=== PATIENT | male | born 1965 | race Caucasian/White ===

== ENCOUNTER 2017-07-21 19:06 | Inpatient (IN) | payer BC, OTHER ==
[~2017-07-21] VITALS: Ht 172.7 cm; Wt 104.0 kg
[2017-07-21] VITALS (11 sets, daily range): BP systolic 137–185; BP diastolic 98–124; PULSE 94–119; RESP 10–24
[~2017-07-21 19:06] MED LIST: HEPARIN 5,000 UNIT/0.5 ML VIAL ONE
[2017-07-21] MEDS ORDERED: HEPARIN 1000 UNITS/ML 10 ML INJ IV STA (19:09)
[2017-07-21] MEDS ORDERED: NITROGLYCERIN 2% 1 GM OINT PKT TD STA (19:09)
[2017-07-21] MEDS ORDERED: ASPIRIN 81 MG TAB ONE (19:09)
[2017-07-21] MEDS ORDERED: SOD CHLORIDE 0.9% 1,000 ML IV STA (19:09)
[2017-07-21 19:18] LABS: BASOPHIL # 0.1 10^3/ul (0.0-0.1); BASOPHILS % 0.5 % (0.0-2.0); EOSINOPHILS % 0.1 % (0.0-7.0); HEMATOCRIT 47.4 % (42.0-52.0); HEMOGLOBIN 16.4 g/dl (14.0-18.0); LYMPHOCYTES # 4.5 10^3/ul (0.8-2.9); LYMPHOCYTES % 26.9 % (15.0-51.0); MEAN CORPUSCULAR HEMOGLOBIN 29.7 pg (29.0-33.0); MEAN CORPUSCULAR HGB CONC 34.6 g/dl (32.0-37.0); MEAN CORPUSCULAR VOLUME 85.9 fl (82.0-101.0); MEAN PLATELET VOLUME 10.1 fl (7.4-10.4); MONOCYTES % 5.8 % (0.0-11.0); NEUTROPHIL # 11.1 10^3/ul (1.6-7.5); NEUTROPHILS % 66.3 % (39.0-77.0); PLATELET COUNT 262 10^3/UL (140-415); RED BLOOD COUNT 5.52 10^6/ul (4.70-6.10); RED CELL DISTRIBUTION WIDTH 12.4 % (11.5-14.5); WHITE BLOOD COUNT 16.7 10^3/ul (4.8-10.8)
[2017-07-21] MEDS ORDERED: ASPIRIN 81 MG TAB PO ONE (19:30)
[2017-07-21 19:31] LABS: INR 0.96; PROTIME 12.8 Sec (12.2-14.2)
[2017-07-21 19:32] LABS: PARTIAL THROMBOPLASTIN TIME 26.2 Sec (25.0-35.0)
[2017-07-21] MEDS ORDERED: VERAPAMIL 5 MG INJ ONE (19:33)
[2017-07-21 19:34] LABS: CALCIUM 9.4 mg/dl (8.4-10.2); CREATININE 1.67 mg/dl (0.61-1.24); POTASSIUM 3.1 mmol/L (3.5-5.1)
--- NOTE | 2017-07-21 19:43 | RADRPT ---
PROCEDURE: XR Chest. CLINICAL INDICATION: Chest Pain. TECHNIQUE: Single frontal view of the chest was obtained COMPARISON: None FINDINGS: The heart and mediastinum are within normal limits. Left basilar subsegmental atelectasis is present. No focal consolidation, pleural effusion, or pneum othorax is seen. The osseous structures are grossly unremarkable. IMPRESSION: 1. Mild left basilar subsegmental atelectasis. No focal consolidations. RPTAT:AAJJ Physician Kia Date Time Electronically viewed and signed by Jessica Everett Physician on 07/21/2017 19:43 QL/
--- NOTE | 2017-07-21 19:46 | CONS ---
Date/Time of Note Date/Time of Note DATE: 07/21/17 TIME: 19:43 Assessment/Plan Assessment/Plan Chief Complaint/Hosp Course Inferoposterior STEMI: to track repair laborer for emergent cath HTN ?CKD vs DANNY: Cr 1.7 -to track repair laborer -further recs to follow Problems: Consultation Date/Type/Reason Admit Date/Time Date of Consultation: Jul 21, 2017 Type of Consultation: Interventional Cardiology Reason for Consultation STEMI Referring Provider: MARISOL SOMMERS MD Hx of Present Illness 52 yo M with a h/o HTN, ?CKD, who presented with 4 days of on and off chest pain which was constant starting 1 hour prior to presentation. No SOB. No prior cardiac history. Still with ongoing chest pain. per HPI Past Medical History HTN Exam/Review of Systems Vital Signs Vitals Vital Signs Date Time Temp Pulse Resp B/P Pulse Ox O2 Delivery O2 Flow Rate FiO2 07/21/17 19:14 Nasal Cannula 2 07/21/17 19:11 99.4 122 22 194/122 95 Exam Constitutional: alert, distress (mild), oriented Psych: nl mood/affect, no complaints Head: atraumatic, normocephalic Eyes: nl conjunctiva ENMT: nl external ears & nose Neck: No jvd Respiratory: clear to auscultation, No crackles/rales Cardiovascular: regular rate and rhythm, No edema, No systolic murmur Gastrointestinal: non-tender, soft Extremities: normal pulses Neurological: nl mental status, nl speech Skin: No rash or lesions Results EKG: inferoposterior STEMI with reciprocal ST depression laterally Result Diagram: 07/21/17190907/21/171909 Results 24 hrs Laboratory Tests Test 07/21/17 19:10 White Blood Count 16.7 H Red Blood Count 5.52 Hemoglobin 16.4 Hematocrit 47.4 Mean Corpuscular Volume 85.9 Mean Corpuscular Hemoglobin 29.7 Mean Corpuscular Hemoglobin Concent 34.6 Red Cell Distribution Width 12.4 Platelet Count 262 Mean Platelet Volume 10.1 Neutrophils % 66.3 Lymphocytes % 26.9 Monocytes % 5.8 Eosinophils % 0.1 Basophils % 0.5 Nucleated Red Blood Cells % 0.0 Neutrophils # 11.1 H Lymphocytes # 4.5 H Monocytes # 1.0 H Eosinophils # 0.0 Basophils # 0.1 Nucleated Red Blood Cells # 0.0 Prothrombin Time 12.8 Prothrombin Time Ratio 1.0 INR International Normalized Ratio 0.96 Activated Partial Thromboplast Time 26.2 Sodium Level 138 Potassium Level 3.1 L Chloride Level 96 L Carbon Dioxide Level 28 Anion Gap 17 H Blood Urea Nitrogen 32 H Creatinine 1.67 H Glucose Level 185 Calcium Level 9.4 Troponin I Pending DION LOMAS Jul 21, 2017 19:46
[2017-07-21 19:48] LABS: TROPONIN-I 0.598 ng/ml (0.00-0.12)
[2017-07-21] MEDS ORDERED: MIDAZOLAM 1 MG/ML 2 ML INJ ONE (19:48)
[2017-07-21] MEDS ORDERED: FENTAnyl 50 MCG/ML VIAL ONE (19:48)
[2017-07-21] MEDS ORDERED: NITROGLYCERIN (IC) 100 MCG/ML INJ ONE (20:08)
[2017-07-21] MEDS ORDERED: BIVALIRUDIN 250MG /NS 50 ML 50 ML IVPB ONE ×2 (20:08→20:37)
[2017-07-21] MEDS ORDERED: TICAGRELOR 90 MG TABLET ONE (20:11)
[2017-07-21] MEDS ORDERED: BISACODYL (EC) 5 MG TAB PO PRN (20:30)
[2017-07-21] MEDS ORDERED: DOCUSATE SODIUM 100 MG CAP PO PRN (20:30)
[2017-07-21] MEDS ORDERED: ACETAMINOPHEN 650MG/20.3ML CUP PO PRN (20:30)
[2017-07-21] MEDS ORDERED: morphine 2 MG INJ IV PRN (20:30)
[2017-07-21] MEDS ORDERED: NITROGLYCERIN (SL) 0.4 MG TAB SL PRN (20:30)
[2017-07-21] MEDS ORDERED: ONDANSETRON 4 MG INJ IV PRN (20:30)
[2017-07-21] MEDS: SOD CHLORIDE 0.9% 1,000 ML IV SCH (20:45)
--- NOTE | 2017-07-21 20:50 | OPR ---
Date/Time of Note Date/Time of Note DATE: 07/21/17 TIME: 20:50 Operative Report Preoperative Diagnosis inferior STEMI Postoperative Diagnosis same s/p PCI of RCA Surgeon see signature line Business Analyst Consultant none Anesthesia Type: moderate sedation Estimated Blood Loss: minimal Transfusion none Specimen none Grafts/Implants none Complications none Procedure Description Procedure Date:07/21/2017 Development Technician/surgeon: Dion Mejia MD. Procedures Performed: 1)Left heart catheterization with selective left and right coronary angiography. 2)Balloon angioplasty and stenting of the mid RCA with a Xience 3.25 x 28 stent. Pre-operative Diagnosis: inferior STEMI Post-operative Diagnosis:inferior STEMI Indications:52 yo M with a h/o HTN, ?CKD, who presented with 4 days of on and off chest pain which was constant starting 1 hour prior to presentation.He was found to have an inferior STEMI Description of Procedure: After informed consent, the patient was brought to the cardiac catheterization lab. The procedure site was prepped and draped in usual manner. The patient was premedicated with versed 1mg and fentanyl 50 mcg. 2 mL lidocaine was injected into the right wrist. Next using the posterior wall technique, the 6/ 5 polish sheath was inserted into the right radial artery. Next using the JL3.5 and JR4, selective angiography of the left and right coronary arteries were obtained. TThe JR accidentally entered the LV and pressures were obtained Left ventricle angiography was not obtained. The decision was made to proceed with PCI of the RCA as this was the likely culprit and the Cx lesion appeared to be CUSTOMER CARE REPRESENTATIVE with well established collaterals from the conus. A JR 4 guide was advanced and engaged into the right coronary artery. After appropriate anticoagulation and antiplatelets were given, the BMW angioplasty wire was advanced past the lesion. Next the 2.0 X 12 balloon was used to dilate the lesion times 2 at a maximum of 12 rylee. Subsequently, the Xience 3.25 x 28 stent was advanced to the lesion and deployed at 14 rylee. Next the stent was post dilated with the 3.5 X 15 noncompliant balloon times 3 at a maximum of 12 rylee. Final angiography revealed JAVAN 3 flow, no edge dissection, and appropriate stent expansion. Next all equipment was removed and hemostasis was achieved by TR band. Findings: Anatomy/Hemodynamics: Left main:normal LAD:prox 30% Diagonal 1: luminal irregularities Diagonal 2: prox 50% Circumflex: mid 100% with collaterals from the conus (from RCA) Obtuse marginal: luminal irregularities RCA: prox 30%, mid 99% ulcerated lesion PDA: luminal irregularities PLV: luminal irregularities LV angiography:not done LV-Ao: no gradient LVEDP: 5 mmHg Contrast used: 90mL Medications used: Versed 1mg Fentanyl 50mcg angiomax verapamil 2.5 NTG 200 ticagrelor 180mg ASA Equipment used: 6 polish JR 4 guide BMW angioplasty wire 2 x 12 balloon Xience 3.25 x 28 drug eluting stent 3.5 x 15 noncompliant balloon Estimated blood loss<10 mL. Specimen: none Grafts/implants: none Complications: none Assessment: Inferior STEMI s/p PCI of mid RCA CAD: PCI as above. Residual CUSTOMER CARE REPRESENTATIVE of Cx/OM which is well collateralized but if symptoms can be attempted HTN ?CKD vs DANNY: monitor renal function post cath Plan: -ASA 81mg lifelong -ticagrelor 90mg BID -continue angiomax 4 more hours -echo -coreg -ACEI/ARB if renal function remains stable - DION MEJIA Jul 21, 2017 20:50
[2017-07-21] MEDS ORDERED: TICAGRELOR 90 MG TABLET PO SCH (21:00)
[2017-07-21] MEDS ORDERED: hydrALAzine 20 MG INJ IV PRN (21:00)
[2017-07-21] MEDS: BIVALIRUDIN 250MG /NS 50 ML 50 ML IVPB SCH ×2 (21:15→23:47)
--- NOTE | 2017-07-21 21:36 | ERD ---
ER Documentation Chief Complaint Chief Complaint cp off and on x3 days. worsened last 40 mins HPI Patient is a 52-year-old male with hypertension who presents with chest pain. The patient is a chest pain for the past 3 days which is coming and going but over the last 40 minutes it was much more pronounced. It is substernal chest pressure and does not radiate. He was given 160 mg of aspirin and 3 nitroglycerin by paramedics. Blood sugar was normal. He has not taken his blood pressure medicines for approximately 1 year. Upon review of old medical records this is the patient's first visit to the ER. ROS All systems reviewed and are negative except as per history of present illness. Allergies Allergies: Coded Allergies: Penicillins (Verified Allergy, 07/21/17) PMhx/Soc Positive for hypertension FmHx Family History: coronary disease Physical Exam Vitals Vital Signs Date Time Temp Pulse Resp B/P Pulse Ox O2 Delivery O2 Flow Rate FiO2 07/21/17 19:14 Nasal Cannula 2 07/21/17 19:11 99.4 122 22 194/122 95 Physical Exam Const: Moderate distress secondary to pain Head: Atraumatic Eyes: Normal Conjunctiva ENT: Normal External Ears, Nose and Mouth. Neck: Full range of motion..~ No meningismus. Resp: Clear to auscultation bilaterally Cardio: Regular rate and rhythm, no murmurs Abd: Soft, non tender, non distended. Normal bowel sounds Skin: Pale skin Back: No midline or flank tenderness Ext: No cyanosis, or edema Neur: Awake and alert Psych: Normal Mood and Affect Result Diagram: 07/21/17190907/21/171909 Results 24 hrs Laboratory Tests Test 07/21/17 19:10 White Blood Count 16.710^3/ul Red Blood Count 5.5210^6/ul Hemoglobin 16.4g/dl Hematocrit 47.4% Mean Corpuscular Volume 85.9fl Mean Corpuscular Hemoglobin 29.7pg Mean Corpuscular Hemoglobin Concent 34.6g/dl Red Cell Distribution Width 12.4% Platelet Count 51378^3/UL Mean Platelet Volume 10.1fl Neutrophils % 66.3% Lymphocytes % 26.9% Monocytes % 5.8% Eosinophils % 0.1% Basophils % 0.5% Nucleated Red Blood Cells % 0.0/100WBC Neutrophils # 11.110^3/ul Lymphocytes # 4.510^3/ul Monocytes # 1.010^3/ul Eosinophils # 0.010^3/ul Basophils # 0.110^3/ul Nucleated Red Blood Cells # 0.010^3/ul Prothrombin Time 12.8Sec Prothrombin Time Ratio 1.0 INR International Normalized Ratio 0.96 Activated Partial Thromboplast Time 26.2Sec Sodium Level 138mmol/L Potassium Level 3.1mmol/L Chloride Level 96mmol/L Carbon Dioxide Level 28mmol/L Anion Gap 17 Blood Urea Nitrogen 32mg/dl Creatinine 1.67mg/dl Glucose Level 185mg/dl Calcium Level 9.4mg/dl Troponin I 0.598ng/ml Current Medications Medications (Trade) Dose Ordered Sig/Clari Route PRN Reason Start Time Stop Time Status Last Admin Dose Admin Sodium Chloride (NS) 1,000 ml @ 1,000 mls/hr Q1H STAT IV 07/21/17 19:09 07/21/17 20:08 DC 07/21/17 19:17 Nitroglycerin (Nitroglycerin 2% Oint) 1 inch ONCE STAT TD 07/21/17 19:09 07/21/17 19:11 DC Heparin Sodium (Porcine) (Heparin (1000 Units/ml)) 5,000 unit ONCE STAT IV 07/21/17 19:09 07/21/17 19:11 DC 07/21/17 19:16 Aspirin (Aspirin) 162 mg ONCE ONCE PO 07/21/17 19:30 07/21/17 19:31 DC 07/21/17 19:17 Ondansetron HCl (Zofran Inj) 4 mg Q6H PRN IV NAUSEA AND/OR VOMITING 07/21/17 20:30 UNV Nitroglycerin (Nitroglycerin (Sl Tab) 0.4 Mg) 1 tab Q5M PRN SL CHEST PAIN 07/21/17 20:30 UNV Acetaminophen (Tylenol Liquid) 650 mg Q6H PRN PO PAIN LEVEL 1-3 OR FEVER 07/21/17 20:30 UNV Morphine Sulfate (morphine) 2 mg Q4H PRN IV PAIN LEVEL 7-10 07/21/17 20:30 UNV Docusate Sodium (Colace) 100 mg Q12H PRN PO CONSTIPATION 07/21/17 20:30 UNV Bisacodyl (Dulcolax) 5 mg DAILY PRN PO CONSTIPATION 07/21/17 20:30 UNV Pantoprazole (Protonix Iv) 40 mg DAILY@06 IV 07/22/17 06:00 UNV Ticagrelor (Brilinta) 90 mg BID PO 07/21/17 21:00 UNV Aspirin (Aspirin) 81 mg DAILY PO 07/22/17 09:00 UNV Carvedilol (Coreg) 6.25 mg BID PO 07/21/17 21:00 UNV Miscellaneous Information HOLD all METFORMIN ... ONCE ONCE XX 07/21/17 21:00 07/21/17 21:01 UNV Sodium Chloride (NS) 1,000 ml @ 75 mls/hr [id number] IV 07/21/17 20:45 07/22/17 01:44 UNV Hydralazine HCl (Apresoline) 10 mg Q6 PRN IV SBP >160 07/21/17 21:00 UNV Procedures/MDM EKG read by me: Rate/Rhythm: Sinus tachycardia Intervals: Normal Impression: Tachycardia with ST elevations in the inferior leads with reciprocal depressions consistent with STEMI Chest x-ray shows no pneumonia or pneumothorax per radiology. Patient is a 52-year-old male who presents with a STEMI. He was given aspirin and nitroglycerin. He was given heparin per Dr. Mejia's request prior to cardiac Furniture Sprayer. The patient was a code STEMI from the field at 190. They did not send EKG but they said they had 2 EKGs that showed STEMI. At 1904 the patient arrived. At [address] Mejia who agreed to go to the cardiac Furniture Spr[facility]. At 1909 an EKG was done. At 1923 the patient was ready to go to the cardiac [facility] but we were still waiting for the cardiac cath team. In 1932 Dr. Mejia was at the bedside. At 1937 the patient was transported to the [facility]. The patient will be admitted to the panel team as the patient has never been here before and the patient is unstable for transfer given the STEMI. The patient will be admitted to the ICU. I doubt pneumonia, pneumothorax, pulmonary embolism, or aortic dissection. Critical Care: Time: 35 minutes excluding all billable procedures. Treatments/Evaluations: Close monitoring and treatment of unstable vital signs, cardiorespiratory, and neurologic status, while maintaining tight balance of fluid, respiratory, and cardiac interventions. Departure Diagnosis: Primary Impression: ST elevation myocardial infarction (STEMI) Involved coronary artery: unspecified coronary artery Qualified Code: I21.3 - ST elevation myocardial infarction (STEMI), unspecified artery Condition: Critical MARISOL SOMMERS MD Jul 21, 2017 21:36
[2017-07-21] MEDS ORDERED: LABETALOL HCL 20MG INJ IV ONE (23:00)
--- NOTE | 2017-07-21 23:37 | HP ---
Date/Time of Note Date/Time of Note DATE: 07/21/17 TIME: 23:36 Assessment/Plan VTE Prophylaxis VTE Prophylaxis Intervention: SCD's Lines/Catheters IV [facility]from [facility] Saline Lock Assessment/Plan Chief Complaint/Hosp Course This is a 52-year-old male being admitted to the ICU floor for: #1 acute STEMI: Inferior STEMI s/p PCI of mid RCA, please see cath report for further details. ASA 81mg lifelong, ticagrelor 90mg BID, continue angiomax for 4 more hours as per cardio echo, coreg, ACEI/ARB if renal function remains stable. Will check a lipid panel, TSH, hemoglobin A1c, patient also likely will need to be started on high-dose statin. #2 CAD: PCI of mid RCA as per #1, please see cath report regarding additional findings as well as areas that are well collateralized but may need to be stented if symptoms occur/recur per cardiology recommendations. Check lipid panel, TSH, hemoglobin A1c, patient also likely will need to be started on high- dose statin. #3 Chronic kidney disease: s/p cardiac cath. Continue to monitor renal function. avoid nephrotoxic agents. Initiate purnima/arb if renal function permits as per cardio. Nephro consult. #4 hypertension: Patient has been noncompliant with his medications for a year. Will continue monitor his blood pressure. Current time is started on Coreg for #1. If his renal function remains normal we likely can initiate an PURNIMA/ arb. We can also consider Norvasc. #5 obesity: We will check hemoglobin A1c, lipid panel, TSH. Dietary recommendations were given to the patient. #6 DVT GI prophylaxis: SCDs, PPI Further treatment strategy will be implemented as per the clinical course Greater than 40 minutes of critical care time was spent on the care and management of this patient Problems: HPI/ROS Admit Date/Time Admit Date/Time Hx of Present Illness cc: chest pain This is a 52-year-old male who presented to the ED today complaining of chest pain. Patient states that the pain started approximately 4 days ago and has been on and off since. The pain is sharp and it was 10 out of 10 and centrally located. He states that today the pain got worse and it radiated down his left arm which prompted him to come to the ED. Patient also reports that he noticed swelling of his bilateral lower feet as well. Denies any diaphoresis or shortness of breath. He reports he has not taken his blood pressure medications in approximately 1 year. Patient was found to have an inferior STEMI on the EKG. Stat code STEMI was called and patient was taken to the [facility] where he received PCI of mid RCA. Patient had the procedure performed successfully and I saw him at the bedside post procedure with the patient was laying there comfortably in no acute distress. Allergies: Penicillin Medications: None ROS Const: Negative for fever, chills, weight gain or weight loss, fatigue, or diaphoresis Eyes : No pain discharge or redness or change in visual acuity ENT: No pain, sore throat, congestion, congestion, dysphagia or discharge Respiratory: As per HPI Cardiovascular: As per HPI GI : no change in appetite, abdominal pain, nausea, vomiting, diarrhea, constipation, or change in the color his stool Genitourinary: No dysuria, hematuria, flank pain , discharge or CVA tenderness Musculoskeletal: No joint pain, back pain, neck pain, restricted range of motion in neck or joints Skin: No rash, bruising or hives Neuro: No headache, dizziness, syncope, seizure, focal weakness Endocrine: No polyuria, polydipsia, temperature intolerance Psych: No hallucination, depression, anxiety or suicidal ideation Psychological: nl mood/affect, no complaints PMH/Family/Social Past Medical History Hypertension Past Surgical History Past Surgical Hx: cholecystectomy Family History Significant Family History: no pertinent family hx Social History Alcohol Use: occasionally Smoking Status: Never smoker Drug Use: none Exam/Review of Systems Vital Signs Vitals Vital Signs Date Time Temp Pulse Resp B/P Pulse Ox O2 Delivery O2 Flow Rate FiO2 07/21/17 23:15 102 14 161/98 97 Room Air 07/21/17 21:50 21 07/21/17 21:15 98.9 07/21/17 19:15 4.0 Exam Exam General: Patient is well-developed well-nourished The patient is alert oriented -3 lying comfortably in bed. HEENT: Atraumatic, normocephalic. The pupils are equal, round and reactive. Extraocular motor are intact Neck: Supple with full range of motion. No rigidity or meningismus Chest: Nontender Lungs: Clear to auscultation bilaterally no crackles rales or wheezing Heart: Normal S1-S2, Regular rhythm and rate. No overt murmur appreciated Abdomen: Soft , nontender, nondistended , bowel sounds are present. No guarding no rebound tenderness , No masses or organomegaly. No costovertebral temporal angle mass Extremities: Normal to inspection, no edema no cyanosis Neurologic: Normal mental status, speech normal, cranial nerves II through XII are intact, motor and sensory are intact, no focal weakness Additional Comments PROCEDURE: XR Chest. CLINICAL INDICATION: Chest Pain. TECHNIQUE: Single frontal view of the chest was obtained COMPARISON: None FINDINGS: The heart and mediastinum are within normal limits. Left basilar subsegmental atelectasis is present. No focal consolidation, pleural effusion, or pneumothorax is seen. The osseous structures are grossly unremarkable. IMPRESSION: 1. Mild left basilar subsegmental atelectasis. No focal consolidations. RPTAT:AAJJ Jessica Everett Physician Date Time Electronically viewed and signed by Jessica Everett Physician on 07/21/2017 19:43 QL/ CC: MARISOL SOMMERS MD 1)Left heart catheterization with selective left and right coronary angiography. 2)Balloon angioplasty and stenting of the mid RCA with a Xience 3.25 x 28 stent. EKG: inferoposterior STEMI with reciprocal ST depression laterally Labs Result Diagram: 07/21/17190907/21/171909 Medications Medications Current Medications Ondansetron HCl (Zofran Inj) 4 mg Q6H PRN IV NAUSEA AND/OR VOMITING; Start at 20:30 Nitroglycerin (Nitroglycerin (Sl Tab) 0.4 Mg) 1 tab Q5M PRN SL CHEST PAIN; Start 07/21/17 at 20:30 Acetaminophen (Tylenol Liquid) 650 mg Q6H PRN PO PAIN LEVEL 1-3 OR FEVER; Start 07/21/17 at 20:30 Morphine Sulfate (morphine) 2 mg Q4H PRN IV PAIN LEVEL 7-10; Start 07/21/17 at 20:30 Docusate Sodium (Colace) 100 mg Q12H PRN PO CONSTIPATION; Start 07/21/17 at 20 :30 Bisacodyl (Dulcolax) 5 mg DAILY PRN PO CONSTIPATION; Start 07/21/17 at 20:30 Pantoprazole (Protonix Iv) 40 mg DAILY@06 IV ; Start 07/22/17 at 06:00 Ticagrelor (Brilinta) 90 mg BID PO ; Start 07/21/17 at 21:00 Aspirin (Aspirin) 81 mg DAILY PO ; Start 07/22/17 at 09:00 Carvedilol 6.25 mg 6.25 mg BID PO Last administered on 07/21/17 22:34; Admin Dose 6.25 MG; Start 07/21/17 at 21:00 Sodium Chloride (NS) 1,000 ml @ 75 mls/hr [id number] IV ; Start 07/21/17 at 20:45 ; Stop 07/22/17 at 01:44 Hydralazine HCl 10 mg 10 mg Q6 PRN IV SBP >160 Last administered on 07/21/17 21:49; Admin Dose 10 MG; Start 07/21/17 at 21:00 Bivalirudin (Angiomax) 50 ml @ 0 mls/hr Q0M IVPB ; Start 07/21/17 at 23:00; Stop 07/22/17 at 01:30 LAUREN KELLY Jul 21, 2017 23:37
[2017-07-22] VITALS (30 sets, daily range): BP systolic 94–159; BP diastolic 63–100; PULSE 45–98; RESP 7–19; Ht 172.7 cm; Wt 104.0 kg
[2017-07-22 01:42] LABS: CK-MB 31.9 ng/ml (0.0-2.4)
[2017-07-22 01:43] LABS: TROPONIN-I 15.8 ng/ml (0.00-0.12)
[2017-07-22] MEDS: SOD CHLORIDE 0.9% 1,000 ML IV SCH (02:50)
[2017-07-22] MEDS ORDERED: PANTOPRAZOLE 40 MG INJ IV SCH (06:00)
[2017-07-22 08:48] LABS: CK-MB 23.7 ng/ml (0.0-2.4)
--- NOTE | 2017-07-22 08:53 | RADRPT ---
PROCEDURE: Renal US. CLINICAL INDICATION: Renal dysfunction. TECHNIQUE: Multiple sonographic images of the kidneys and urinary bladder were obtained. The imag es were reviewed on a PACS workstation. COMPARISON: No prior studies are available for comparison. FINDINGS: The right kidney measures 11.3 x 5.0 x 5.4 cm. The left kidney measures 11.8 x 6.1 x 5.3 cm. There is no solid renal mass. There are benign left renal cysts with the largest measuring 2.0 cm in maximal dimension. There is no hydronephrosis. There is a nonobstructing 0.6 cm calculus inferiorly in the left kidney. There is no other renal ramiro culus. Renal parenchymal thickness is normal bilaterally. Both kidneys are hyperechoic consistent with medical renal disease. The perirenal regions are normal with no fluid collection or mass. The urinary bladder is unremarkable. IMPRESSION: 1. Benign left renal cysts. 2. Nonobstructing 0.6 cm calculus inferiorly in the left kidney. 3. Bilateral hyperechoic kidneys consistent with medical renal disease. 4. Otherwise unremarkable renal ultrasound. RPTAT: QQ .Álvaro Estevez MD, MD Date Time Electronically viewed and signed by .Álvaro Estevez MD, on 07/22/2017 08:52 .R/
[2017-07-22 09:56] LABS: CALCIUM 8.8 mg/dl (8.4-10.2); CREATININE 1.45 mg/dl (0.61-1.24); POTASSIUM 3.1 mmol/L (3.5-5.1)
[2017-07-22] MEDS ORDERED: SOD CHLORIDE 0.9% 1,000 ML IV ONE (10:00)
[2017-07-22] MEDS: ASPIRIN 81 MG TAB PO SCH (10:08)
[2017-07-22] MEDS: ACETYLCYSTEINE 600 MG CAP PO SCH ×2 (10:08→20:51)
--- NOTE | 2017-07-22 10:58 | CONS ---
DATE OF ADMISSION: 07/21/2017 DATE OF CONSULTATION: REASON FOR CONSULTATION: DANNY versus DANNY on CKD. HISTORY OF PRESENT ILLNESS: This is a 52-year-old male who is [employer] by profession, presented to the emergency department after complaining of chest bone pain for 4 days. The patient said that the chest pain started 4 days ago. It has been on and off since. Patient's pain was sharp. Patient said that the pain got worse last night and radiated to the left arm and prompted him to come to the ED. Last night he noted a swelling in the bilateral lower extremities, but that has resolved. Patient denied any shortness of breath, any dizziness prior to this episode. The patient was seen in the ER and was found to have inferior STEMI on EKG, code STEMI was called and patient was taken to the laborer where patient had a left heart catheterization and selective left and right coronary angiography. The patient had balloon angioplasty and stenting of the mid RCA with a stent. On admission, patient had labs that were done and showed a BUN of 32, creatinine 1.67, potassium 3.1, chloride 96, bicarbonate 28, and Renal was consulted for further management. Upon questioning, the patient said that he was diagnosed to have hypertension 3 years ago. He was prescribed a medication which he took it for 1 year and after that he stopped taking the medication. He was checking his blood pressure occasionally at home and his blood pressure would sometimes run systolic of 130 or sometimes would run 160, but he never went to any doctor to take any medication. Patient was never told that he has any kidney disease in the past. The patient also apparently had history of kidney stone on the right side, which happened 2 years ago. He went to an ER where he had right- sided flank pain. They did a CT scan of the abdomen and pelvis where he was found to have a right kidney stone. He was just prescribed some pain medications and he went home and according to the patient, he passed a stone and he never had any problems since then. Currently, patient denies any chest pain and is status post angiogram.Denies any NSAID use PAST MEDICAL HISTORY: 1. Hypertension, which has been uncontrolled for the last 3 years. 2. History of right kidney stone. 3. Obesity. ALLERGIES: PENICILLIN. PAST SURGICAL HISTORY: Hernia repair. SOCIAL HISTORY: Denies any history of smoking. Occasionally drinks alcohol. Denies any drug use. Is an [employer] by profession, works in [employer]. FAMILY HISTORY: No history of kidney disease in the family. REVIEW OF SYSTEMS: The patient denies any headache, any blurry vision had this episode of chest pain. Denied any orthopnea, PND had lower extremity edema which is resolved. Denied any abdominal pain, nausea, vomiting, diarrhea. Denies any hematemesis, any melena, any bright blood per rectum. Denies any urinary urgency, frequency, hematuria. The patient has history of kidney stone 2 years ago. After that did not seek any treatment. PHYSICAL EXAMINATION: VITAL SIGNS: Heart rate 84, blood pressure 121/67, pulse 84, saturating 99%. GENERAL: The patient is awake, alert, oriented, moderate. Does not appear to be in any acute distress. HEENT: Pupils equal, round, reactive to light. NECK: Supple. No JVD. HEART: Regular rate and rhythm. No murmur, rub or gallop. ABDOMEN: Soft, nontender, nondistended, positive bowel sounds. No guarding or rebound tenderness. EXTREMITIES: No clubbing, cyanosis, or edema. NEUROLOGIC: Grossly nonfocal. DIAGNOSTIC DATA: Shows labs on admission on 08/07 at 1900, a potassium of 3.1, BUN of 32, creatinine 1.67, glucose of 185. Troponin was 0.598 and is now 18. White count was 16.7, hemoglobin 15.4, platelet count 262. INR was 0.96. The patient had a chest x-ray that showed mild basilar segmental atelectasis, no focal and no consolidations. Patient had a renal ultrasound that shows right kidney 11.3 x 2.5 x 5.4 cm, left kidney measures 11.8 x 6.1 x 5.3 cm, benign left renal cyst larger is 2.0 cm in dimension, nonobstructive 0.6 cm calculus inferior left kidney. Bilateral hyperechoic kidneys consistent with medical renal disease, otherwise unremarkable renal ultrasound. ASSESSMENT AND PLAN: This is a 52-year-old male presenting with 1. Acute versus acute on chronic kidney disease. Patient does not have any labs in the past, had never been to a doctor. The patient has uncontrolled hypertension for many years, do not know patient's baseline creatinine, assuming possibly patient had chronic kidney disease from underlying uncontrolled hypertension. Plus, on admission, creatinine was 1.67, which could have been worsened likely secondary to cardiorenal( due to DE) Patient had left and right heart catheterization performed on 07/21/2017 and there are no new labs from today. Patient is at high risk for contrast nephropathy given underlying chronic kidney disease and history of hypertension. Plus patient also has history of kidney stone in the past; do not know the baseline creatinine, plus also patient has a renal cyst on the left side. The patient denies any NSAID use and denies any BPH symptoms. 2. Hypokalemia. 3. Coronary artery disease, status post percutaneous coronary intervention of mid right coronary artery. 4. Acute STEMI, status post percutaneous coronary intervention of the mid right coronary artery. 5. Hypertension, which has been uncontrolled. 6. Obesity. 7. Kidney cysts. 8. Renal calculus. PLAN: At this period of time, the patient is admitted to CCU. We will monitor the patient for contrast nephropathy for 24 to 48 hours. Patients who have GFR of less than 45 with or without proteinuria with or without Diabetes have high risk of contrast nephropathy 1. We will give the patient fluids at 1 mg/kg for at least 6-12 hours post- catheterization procedure. 2 We will give the patient Mucomyst 1200 mg p.o. b.i.d. post procedure. 3. Avoid volume depletion and no NSAIDs 4. Avoid all nephrotoxic agents. 5. Would not recommend starting the patient on PURNIMA or ARB at this point due to acute kidney injury on chronic kidney disease. 6 Avoid any hemodynamic changes and any BP Drops 7 We will also check a urinalysis for proteinuria and urine electrolytes. 8 Patient does not have any symptoms from kidney stones that can be worked up as an outpatient. 9 The patient will eventually require a CT scan of the kidney to evaluate for kidney cyst which can also be done as an outpatient. 10 We will follow the patient closely with you. Thank you for the consultation. Please call us with any questions. Dictated By: MARITZA FABIAN/MEGAN Conf#: [id number] DID#: [id number] CC: LAUREN KELLY MD;*EndCC* MTDD
[2017-07-22] MEDS ORDERED: POTASSIUM CHLORIDE (SR) 20 MEQ TAB PO STA (13:03)
--- NOTE | 2017-07-22 13:03 | PN ---
Date/Time of Note Date/Time of Note DATE: 07/22/17 TIME: 12:52 Assessment/Plan VTE Prophylaxis VTE Prophylaxis Intervention: heparin Lines/Catheters IV Catheter Type (from Nrsg): Saline Lock Assessment/Plan Assessment/Plan 1. CAD with Acute STEMI, s/p mid RCA stent 07/21/2017, stable, on aspirin/ brilinta, lipitor, coreg 2. Acute on chronic renal failure, avoid nephrotoxic, follow up with BMP 3. HTN, controlled 4. Obesity 5. Hypokalemia, KCL 6. DVT prophylaxis: heparin Subjective 24 Hr Interval Summary Free Text/Dictation no chest pain, no shortness of breath Exam/Review of Systems Vital Signs Vitals Vital Signs Date Time Temp Pulse Resp B/P Pulse Ox O2 Delivery O2 Flow Rate FiO2 07/22/17 11:00 87 10 120/83 99 Room Air 07/22/17 08:00 98.6 07/21/17 21:50 21 07/21/17 19:15 4.0 Intake and Output 07/21/17 07/21/17 07/22/17 15:00 23:00 07:00 Intake Total 187.5 ml 1070 ml Output Total 700 ml Balance 187.5 ml 370 ml Exam Constitutional: alert, oriented, well developed Psych: nl mood/affect, no complaints Head: atraumatic, normocephalic Eyes: EOMI, PERRL, nl conjunctiva, nl lids ENMT: mucosa pink and moist, nl external ears & nose, nl lips & teeth, nl nasal mucosa & septum Neck: non-tender, supple Respiratory: clear to auscultation, normal air movement, No congested cough, No crackles/rales, No diminished breath sounds, No intercostal retraction, No labored breathing, No other, No respirations, No tactile fremitus, No wheezing Cardiovascular: nl pulses, regular rate and rhythm, No S3, No S4, No bruits, No diastolic murmur, No edema, No gallop, No irregular rhythm, No jugular venous distention (JVD), No murmurs/extra sounds, No other, No rub, No systolic murmur Gastrointestinal: nl liver, spleen, non-tender, soft, No ascites, No bowel sounds, No distended, No firm, No hepatomegaly, No mass , No other, No rebound or guarding, No splenomegaly, No surgical scars, No tender Musculoskeletal: nl extremities to inspection Extremities: normal pulses, No calf tenderness, No clubbing, No cyanosis, No edema, No other, No palpable cord, No pitting pedal edema, No tenderness 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, nl mental status, nl speech, nl strength Skin: nl turgor Lymph: nl lymph nodes Results Result Diagram: 07/21/17 1910 07/22/17 0750 Results 24 hrs Laboratory Tests Test 07/21/17 19:10 07/22/17 00:39 07/22/17 07:50 White Blood Count 16.7 H Red Blood Count 5.52 Hemoglobin 16.4 Hematocrit 47.4 Mean Corpuscular Volume 85.9 Mean Corpuscular Hemoglobin 29.7 Mean Corpuscular Hemoglobin Concent 34.6 Red Cell Distribution Width 12.4 Platelet Count 262 Mean Platelet Volume 10.1 Neutrophils % 66.3 Lymphocytes % 26.9 Monocytes % 5.8 Eosinophils % 0.1 Basophils % 0.5 Nucleated Red Blood Cells % 0.0 Neutrophils # 11.1 H Lymphocytes # 4.5 H Monocytes # 1.0 H Eosinophils # 0.0 Basophils # 0.1 Nucleated Red Blood Cells # 0.0 Prothrombin Time 12.8 Prothrombin Time Ratio 1.0 INR International Normalized Ratio 0.96 Activated Partial Thromboplast Time 26.2 Sodium Level 138 140 Potassium Level 3.1 L 3.1 L Chloride Level 96 L 104 Carbon Dioxide Level 28 26 Anion Gap 17 H 13 Blood Urea Nitrogen 32 H 34 H Creatinine 1.67 H 1.45 H Glucose Level 185 170 Calcium Level 9.4 8.8 Troponin I 0.598 *H 15.800 *H 18.000 *H Creatine Kinase 462 H 404 H Creatine Kinase Index 6.9 5.9 Creatinine Kinase MB (Mass) 31.90 H 23.70 H Medications Medications Current Medications Pantoprazole (Protonix Iv) 40 mg DAILY@06 IV Last administered on 07/22/17 06 :00; Admin Dose 40 MG; Start 07/22/17 at 06:00 Aspirin (Aspirin) 81 mg DAILY PO Last administered on 07/22/17 10:08; Admin Dose 81 MG; Start 07/22/17 at 09:00 Acetylcysteine 1200 mg 1,200 mg BID PO Last administered on 11/14/17at 10:08; Admin Dose 1,200 MG; Start 07/22/17 at 10:00; Stop 07/23/17 at 21:01 Sodium Chloride (NS) 1,000 ml @ 75 mls/hr [id number] ONCE IV Last administered on 07/22/17t 10:09; Admin Dose 75 MLS/HR; Start 07/22/17 at 10:00; Stop 07/22 at 23:19 HARITHA MCKENNA MD Jul 22, 2017 13:02
[2017-07-22 13:24] LABS: CHOL/HDL RATIO 6.5 RATIO
--- NOTE | 2017-07-22 14:31 | RADRPT ---
Echocardiogram Report Patient Name: CHAD ELY Gender: Male Date: 1965 Study Date: 22-Jul-2017 Environmental Designer: Norm Seaman RDCS Location: 120 Ref. Physician: LAUREN KELLY Quality: Good Procedures: Transthoracic echocardiogram with complete 2D, M-Mode, and doppler examination. Indications: STEMI. 2D/M Mode Doppler Measurement Value Normal Ranges Measurement Value Normal Ranges LVIDd 2D 4.1 3.5 - 5.6 cm AV Peak [place] 1.4 m/sec LVIDs 2D 2.2 2.1 - 4.1 cm AV Peak PG 7.8 mmHg LVPWd 2D 1.4 0.6 - 1.1 cm AI Peak PG 98.8 mmHg IVSd 2D 1.4 0.6 - 1.1 cm AI Peak [place] 5.0 m/sec AoR Diam 2D 3.3 2.0 - 3.7 cm AI PHT 353.6 msec EDV 2D 74.2 cm3 LVOT Peak [place] 1.4 m/sec ESV 2D 11.0 cm3 LVOT Peak PG 8.2 mmHg LA Dimen 2D 3.5 2.3 - 4.0 cm MV E Peak [place] 0.7 m/sec MV A Peak [place] 1.2 m/sec MV E/A 0.6 MV Decel Time 104 msec MV Decel [place] 7 MV E/A 0.6 Findings Left Ventricle: Normal left ventricular systolic function. Normal left ventricular cavity size. Mild concentric left ventricular hypertrophy. Ejection fraction is visually estimated at 65 %. Tissue Doppler/Mitral Doppler indices are consistent with impaired relaxation (Stage I diastolic dysfunction). Hypokinesis of the inferior wall. Right Ventricle: Normal right ventricular size. Normal right ventricular systolic function. Left Atrium: There is mild enlargement of left atrium. Right Atrium: The right atrium is normal in size. Mitral Valve: Normal appearance and function of the mitral valve with trace physiologic regurgitation. Aortic Valve: No hemodynamically significant aortic stenosis by doppler. Aortic cusps appear mildly calcified. Moderate aortic valve regurgitation. Tricuspid Valve: Normal appearance of the tricuspid valve. Unable to obtain RVSP due to minimal presence of tricuspid regurgitation. There is trace tricuspid regurgitation. Pulmonic Valve: Normal pulmonic valve appearance. Pericardium: Normal pericardium with no significant pericardial effusion. Aorta: Sinus of valsalva4.0 cm. There is mild aortic root dilation. IVC: Normal size and normal respiratory collapse consistent with normal right atrial pressure. Conclusions Normal left ventricular systolic function. Normal left ventricular cavity size. Mild concentric left ventricular hypertrophy. Ejection fraction is visually estimated at 65 %. Tissue Doppler/Mitral Doppler indices are consistent with impaired relaxation (Stage I diastolic dysfunction). Hypokinesis of the inferior wall. Moderate aortic valve regurgitation. Sinus of valsalva4.0 cm. There is mild aortic root dilation. Unable to obtain RVSP due to minimal presence of tricuspid regurgitation. RA pressure estimated to be 3 mmHg. Electronically Signed By: Prince Mejia 22-Jul-2017 14:31:22 -0800 Patient Name: CHAD ELY Study Date: 22-Jul-2017 [id number]
[2017-07-22] MEDS: TICAGRELOR 90 MG TABLET PO SCH ×2 (15:04→20:57)
--- NOTE | 2017-07-22 16:00 | CONS ---
Date/Time of Note Date/Time of Note DATE: 07/22/17 TIME: 15:57 Assessment/Plan Assessment/Plan Chief Complaint/Hosp Course Inferior STEMI s/p PCI of mid RCA. EF preserved CAD: PCI as above. 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 So far slightly better but VIPUL would be expected 48 hrs post -ASA 81mg lifelong -ticagrelor 90mg BID -coreg 6.25mg BID -lipitor -ACEI/ARB at some point (even as outpt) if renal function remains stable -transfer to tele Problems: Consultation Date/Type/Reason Admit Date/Time Jul 21, 2017 at 21:00 Initial Consult Date 07/21/17 Type of Consultation: Interventional Cardiology Referring Provider: MARISOL SOMMERS MD 24 HR Interval Summary Free Text/Dictation No o/n events. Feels well. No chest pain. Ambulated without issues. Exam/Review of Systems Vital Signs Vitals Vital Signs Date Time Temp Pulse Resp B/P Pulse Ox O2 Delivery O2 Flow Rate FiO2 07/22/17 15:00 92 14 132/91 96 Room Air 07/22/17 12:00 98.2 07/21/17 21:50 21 07/21/17 19:15 4.0 Intake and Output 07/21/17 07/21/17 07/22/17 15:00 23:00 07:00 Intake Total 187.5 ml 1070 ml Output Total 700 ml Balance 187.5 ml 370 ml Exam Constitutional: alert, oriented Psych: nl mood/affect, no complaints Head: atraumatic, normocephalic Neck: supple, No jvd Respiratory: clear to auscultation, No crackles/rales Cardiovascular: regular rate and rhythm, No edema, No systolic murmur Gastrointestinal: non-tender, soft Neurological: nl mental status, nl speech Results Result Diagram: 07/21/17 1910 07/22/17 0750 Results 24 hrs Laboratory Tests Test 07/21/17 19:10 07/22/17 00:39 07/22/17 07:50 White Blood Count 16.7 H Red Blood Count 5.52 Hemoglobin 16.4 Hematocrit 47.4 Mean Corpuscular Volume 85.9 Mean Corpuscular Hemoglobin 29.7 Mean Corpuscular Hemoglobin Concent 34.6 Red Cell Distribution Width 12.4 Platelet Count 262 Mean Platelet Volume 10.1 Neutrophils % 66.3 Lymphocytes % 26.9 Monocytes % 5.8 Eosinophils % 0.1 Basophils % 0.5 Nucleated Red Blood Cells % 0.0 Neutrophils # 11.1 H Lymphocytes # 4.5 H Monocytes # 1.0 H Eosinophils # 0.0 Basophils # 0.1 Nucleated Red Blood Cells # 0.0 Prothrombin Time 12.8 Prothrombin Time Ratio 1.0 INR International Normalized Ratio 0.96 Activated Partial Thromboplast Time 26.2 Sodium Level 138 140 Potassium Level 3.1 L 3.1 L Chloride Level 96 L 104 Carbon Dioxide Level 28 26 Anion Gap 17 H 13 Blood Urea Nitrogen 32 H 34 H Creatinine 1.67 H 1.45 H Glucose Level 185 170 Calcium Level 9.4 8.8 Troponin I 0.598 *H 15.800 *H 18.000 *H Creatine Kinase 462 H 404 H Creatine Kinase Index 6.9 5.9 Creatinine Kinase MB (Mass) 31.90 H 23.70 H Hemoglobin A1c 7.9 H Triglycerides Level 168 H Cholesterol Level 195 LDL Cholesterol, Calculated 131 HDL Cholesterol 30 Cholesterol/HDL Ratio 6.5 Medications Medications Current Medications Aspirin (Aspirin) 81 mg DAILY PO Last administered on 07/22/17 10:08; Admin Dose 81 MG; Start 07/22/17 at 09:00 Acetylcysteine 1200 mg 1,200 mg BID PO Last administered on 07/22/17 10:08; Admin Dose 1,200 MG; Start 07/22/17 at 10:00; Stop 07/23/17 at 21:01 Sodium Chloride (NS) 1,000 ml @ 75 mls/hr [id number] ONCE IV Last administered on 07/22/17 10:09; Admin Dose 75 MLS/HR; Start 07/22/17 at 10:00; Stop 07/22 at 23:19 Atorvastatin Calcium (Lipitor) 40 mg HS PO ; Start 07/22/17 at 21:00 Ticagrelor (Brilinta) 90 mg BID PO Last administered on 07/22/17 15:04; Admin Dose 90 MG; Start 07/22/17 at 14:30 Carvedilol (Coreg) 6.25 mg BID PO Last administered on 07/22/17 15:03; Admin Dose 6.25 MG; Start 07/22/17 at 14:30 Pantoprazole (Protonix Tab) 40 mg DAILY@06 PO ; Start 07/23/17 at 06:00 DION LOMAS Jul 22, 2017 16:00
[2017-07-22 17:44] LABS: ADD UMIC YES; UR ASCORBIC ACID NEGATIVE (NEGATIVE); UR BILIRUBIN (Dip) NEGATIVE (NEGATIVE); UR BLOOD (Dip) NEGATIVE (NEGATIVE); UR CLARITY CLEAR (CLEAR); UR COLOR YELLOW (YELLOW); UR GLUCOSE (Dip) 1+ mg/dL (NEGATIVE); UR KETONES (Dip) NEGATIVE (NEGATIVE); UR LEUKOCYTE ESTERASE (Dip) NEGATIVE Leu/ul (NEGATIVE); UR MUCUS FEW /HPF (NONE SEEN); UR NITRITE (Dip) NEGATIVE (NEGATIVE); UR RBC 0 /HPF (0-5); UR SPECIFIC GRAVITY (Dip) 1.031 (1.003-1.030); UR SQUAMOUS EPITHELIAL CELL FEW /HPF (FEW); UR TOTAL PROTEIN (Dip) 2+ mg/dl (NEGATIVE); UR UROBILINOGEN (Dip) NEGATIVE (NEGATIVE)
[2017-07-22] MEDS: ATORVASTATIN 40 MG TAB PO SCH (20:51)
--- NOTE | 2017-07-22 21:48 | RADRPT ---
Vent Rate: 89 bpm RR Interval: 0 msec HI Interval: 152 msec QRS Duration: 92 msec QT Interval: 430 msec QTC Interval: 523 msec P-R-T Novice: 64 - 55 - 144 degrees Normal sinus rhythm Cannot rule out Inferior infarct , age undetermined ST amp; T wave abnormality, consider lateral ischemia Prolonged QT Abnormal ECG Electronically Signed By: Jakub Doe [id number]
[2017-07-23] VITALS (12 sets, daily range): BP systolic 135–171; BP diastolic 80–109; PULSE 43–94; RESP 16–19
[2017-07-23] MEDS: PANTOPRAZOLE (EC) 40 MG TAB PO SCH (05:57)
[2017-07-23 07:06] LABS: BASOPHIL # 0.1 10^3/ul (0.0-0.1); BASOPHILS % 0.4 % (0.0-2.0); EOSINOPHILS # 0.1 10^3/ul (0.0-0.5); EOSINOPHILS % 1.1 % (0.0-7.0); HEMATOCRIT 37.3 % (42.0-52.0); HEMOGLOBIN 12.8 g/dl (14.0-18.0); LYMPHOCYTES # 2.6 10^3/ul (0.8-2.9); LYMPHOCYTES % 22.1 % (15.0-51.0); MEAN CORPUSCULAR HEMOGLOBIN 30.5 pg (29.0-33.0); MEAN CORPUSCULAR HGB CONC 34.3 g/dl (32.0-37.0); MEAN CORPUSCULAR VOLUME 88.8 fl (82.0-101.0); MEAN PLATELET VOLUME 10.7 fl (7.4-10.4); MONOCYTE # 0.9 10^3/ul (0.3-0.9); MONOCYTES % 8.1 % (0.0-11.0); NEUTROPHIL # 7.9 10^3/ul (1.6-7.5); PLATELET COUNT 204 10^3/UL (140-415); RED CELL DISTRIBUTION WIDTH 13.2 % (11.5-14.5); WHITE BLOOD COUNT 11.7 10^3/ul (4.8-10.8)
[2017-07-23 07:16] LABS: ALBUMIN 3.3 g/dl (3.3-4.9); ALBUMIN/GLOBULIN RATIO 1.03; BILIRUBIN,INDIRECT 0.8 mg/dl (0-1.1); BILIRUBIN,TOTAL 0.8 mg/dl (0.2-1.3); CALCIUM 8.3 mg/dl (8.4-10.2); CREATININE 1.33 mg/dl (0.61-1.24); POTASSIUM 3.4 mmol/L (3.5-5.1); TOTAL PROTEIN 6.5 g/dl (6.1-8.1)
[2017-07-23] MEDS: ACETYLCYSTEINE 600 MG CAP PO SCH ×3 (09:00→21:00)
[2017-07-23] MEDS: ASPIRIN 81 MG TAB PO SCH (09:00)
[2017-07-23] MEDS: TICAGRELOR 90 MG TABLET PO SCH ×2 (09:00→20:56)
[2017-07-23] MEDS ORDERED: POTASSIUM CHLORIDE (SR) 20 MEQ TAB PO STA (09:25)
--- NOTE | 2017-07-23 11:59 | CONS ---
Date/Time of Note Date/Time of Note DATE: 07/23/17 TIME: 11:54 Assessment/Plan Assessment/Plan Chief Complaint/Hosp Course Inferior STEMI s/p PCI of mid RCA. EF preserved CAD: PCI as above. 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 Up to 2 seconds. Likely has sleep apnea. HTN: uncontrolled this am ?CKD vs DANNY: Cr continues to improve -ASA 81mg lifelong -ticagrelor 90mg BID -coreg 6.25mg BID (ok to keep dose as is as no pauses while awake) -lipitor -start amlodipine 5 mg for BP but eventually switch to or add ACEI/ARB (as outpt ) -ok for d/c if BP better this afternoon -should have outpt sleep study for OUMAR eval Problems: Consultation Date/Type/Reason Admit Date/Time Jul 21, 2017 at 21:00 Initial Consult Date 07/21/17 Type of Consultation: Interventional Cardiology Referring Provider: MARISOL SOMMERS MD 24 HR Interval Summary Free Text/Dictation Had few 2 second pauses while asleep. notes he snores frequently. No events while awake. Really wants to go home. No chest pain or SOB otherwise. Exam/Review of Systems Vital Signs Vitals Vital Signs Date Time Temp Pulse Resp B/P Pulse Ox O2 Delivery O2 Flow Rate FiO2 07/23/17 11:47 98.4 81 16 171/109 97 07/22/17 18:00 Room Air 07/21/17 21:50 21 07/21/17 19:15 4.0 Intake and Output 07/22/17 07/22/17 07/23/17 14:59 22:59 06:59 Intake Total 770 ml 350 ml 200 ml Output Total 400 ml 0 ml 550 ml Balance 370 ml 350 ml -350 ml Exam Constitutional: alert, oriented Psych: nl mood/affect, no complaints Head: atraumatic, normocephalic Neck: supple, No jvd Respiratory: clear to auscultation, No crackles/rales Cardiovascular: regular rate and rhythm, No edema, No systolic murmur Gastrointestinal: non-tender, soft Neurological: nl mental status, nl speech Results Result Diagram: 11/15/17 0622 11/15/17 0622 Results 24 hrs Laboratory Tests Test 07/22/17 13:15 07/23/17 06:22 Urine Color YELLOW Urine Clarity CLEAR Urine pH 5.0 Urine Specific [place] 1.031 H Urine Ketones NEGATIVE Urine Nitrite NEGATIVE Urine Bilirubin NEGATIVE Urine Urobilinogen NEGATIVE Urine Leukocyte Esterase NEGATIVE Urine Microscopic RBC 0 Urine Microscopic WBC 1 Urine Squamous Epithelial Cells FEW Urine Mucus FEW A Urine Hemoglobin NEGATIVE Urine Glucose 1+ H Urine Total Protein 2+ H White Blood Count 11.7 #H Red Blood Count 4.20 #L Hemoglobin 12.8 #L Hematocrit 37.3 #L Mean Corpuscular Volume 88.8 Mean Corpuscular Hemoglobin 30.5 Mean Corpuscular Hemoglobin Concent 34.3 Red Cell Distribution Width 13.2 Platelet Count 204 # Mean Platelet Volume 10.7 H Neutrophils % 68.0 Lymphocytes % 22.1 Monocytes % 8.1 Eosinophils % 1.1 Basophils % 0.4 Nucleated Red Blood Cells % 0.0 Neutrophils # 7.9 H Lymphocytes # 2.6 Monocytes # 0.9 Eosinophils # 0.1 Basophils # 0.1 Nucleated Red Blood Cells # 0.0 Sodium Level 142 Potassium Level 3.4 L Chloride Level 106 Carbon Dioxide Level 27 Anion Gap 12 Blood Urea Nitrogen 26 H Creatinine 1.33 H Glucose Level 135 Calcium Level 8.3 L Total Bilirubin 0.8 Direct Bilirubin 0.00 Indirect Bilirubin 0.8 Aspartate Amino Transf (AST/SGOT) 40 Alanine Aminotransferase (ALT/SGPT) 27 Alkaline Phosphatase 79 Total Protein 6.5 Albumin 3.3 Globulin 3.20 Albumin/Globulin Ratio 1.03 Medications Medications Current Medications Aspirin (Aspirin) 81 mg DAILY PO Last administered on 07/23/17 09:00; Admin Dose 81 MG; Start 07/22/17 at 09:00 Acetylcysteine (Nac) 1,200 mg BID PO Last administered on 07/23/17 09:00; Admin Dose 1,200 MG; Start 07/22/17 at 10:00; Stop 07/23/17 at 21:01 Atorvastatin Calcium (Lipitor) 40 mg HS PO Last administered on 07/22/17 20: 51; Admin Dose 40 MG; Start 07/22/17 at 21:00 Ticagrelor (Brilinta) 90 mg BID PO Last administered on 07/23/17 09:00; Admin Dose 90 MG; Start 11/14/17 at 14:30 Carvedilol (Coreg) 6.25 mg BID PO Last administered on 07/23/17 09:00; Admin Dose 6.25 MG; Start 07/22/17 at 14:30 Pantoprazole (Protonix Tab) 40 mg DAILY@06 PO Last administered on 07/23/17 05:57; Admin Dose 40 MG; Start 07/23/17 at 06:00 DION LOMAS Jul 23, 2017 11:59
[2017-07-23] MEDS ORDERED: AMLODIPINE 5 MG TAB PO SCH (12:00)
[2017-07-23] MEDS: hydrALAzine 20 MG INJ IV PRN ×2 (12:54→17:51)
[2017-07-23] MEDS ORDERED: POTASSIUM CHLORIDE (SR) 10 MEQ TAB PO ONE (14:00)
[2017-07-23] MEDS ORDERED: ATOR40TA68 PO (14:08)
[2017-07-23] MEDS ORDERED: CARV6.2579 PO (14:08)
[2017-07-23] MEDS ORDERED: AMLO-147 PO (14:08)
[2017-07-23] MEDS ORDERED: ASPI81TA3 PO (14:08)
[2017-07-23] MEDS ORDERED: TICA90TA PO (14:08)
--- NOTE | 2017-07-23 14:13 | DS ---
Date/Time of Note Date/Time of Note DATE: 07/23/17 TIME: 14:09 Discharge Summary Admission/Discharge Info Admit Date/Time Jul 21, 2017 at 21:00 Discharge Date/Time Discharge Diagnosis 1. CAD with Acute STEMI, s/p mid RCA stent 07/21/2017, stable, on aspirin/ brilinta, lipitor, coreg 2. Acute on chronic renal failure, improving, follow up with nephrology 3. HTN, controlled 4. Obesity 5. DM, newly diagnosed, start trajenta, follow up with PCP Hospital Course This is a 52-year-old male who presented to the ED today complaining of chest pain. Patient states that the pain started approximately 4 days ago and has been on and off since. The pain is sharp and it was 10 out of 10 and centrally located. He states that today the pain got worse and it radiated down his left arm which prompted him to come to the ED. Patient also reports that he noticed swelling of his bilateral lower feet as well. Denies any diaphoresis or shortness of breath. He reports he has not taken his blood pressure medications in approximately 1 year. Patient was found to have an inferior STEMI on the EKG. Stat code STEMI was called and patient was taken to the [facility] where he received PCI of mid RCA. Patient has no chest pain or shortness of breath after the procedure. He will follow up with cardiology outpatient. For hypertension, he is on coreg and norvasc. Cr was 1.67 on 07/21/2017, it improves to 1.33 on 07/23/2017. Patient will follow up with nephrology in one week. HbA1c 7.9. Patient is going to get DM education. I will start him on trajenta. Home Meds Active Scripts Lisinopril* (Lisinopril*) 20 Mg Tablet, 20 MG PO DAILY, #30 TAB Prov:HARITHA MCKENNA MD 07/23/17 Aspirin (Aspirin) 81 Mg Chew, 81 MG PO DAILY for 30 Days, TAB Prov:HARITHA MCKENNA MD 07/23/17 Carvedilol* (Carvedilol*) 6.25 Mg Tablet, 6.25 MG PO BID for 30 Days, TAB Prov:HARITHA MCKENNA MD 07/23/17 Atorvastatin* (Atorvastatin*) 40 Mg Tablet, 40 MG PO HS for 30 Days, TAB Prov:HARITHA MCKENNA MD 07/23/17 Amlodipine Besylate* (Amlodipine Besylate*) 10 Mg Tablet, 10 MG PO DAILY for 30 Days, TAB Prov:HARITHA MCKENNA MD 07/23/17 Ticagrelor* (Brilinta*) 90 Mg Tablet, 90 MG PO BID for 30 Days, TAB Prov:HARITHA MCKENNA MD 07/23/17 Follow-up Plan PCP in one week cardiology in one week nephrology in one week Primary Care Provider Rajeev Chawla Pending Labs Laboratory Tests Test 07/23/17 06:22 White Blood Count 11.710^3/ul (4.8-10.8) Red Blood Count 4.2010^6/ul (4.70-6.10) Hemoglobin 12.8g/dl (14.0-18.0) Hematocrit 37.3% (42.0-52.0) Mean Corpuscular Volume 88.8fl (82.0-101.0) Mean Corpuscular Hemoglobin 30.5pg (29.0-33.0) Mean Corpuscular Hemoglobin Concent 34.3g/dl (32.0-37.0) Red Cell Distribution Width 13.2% (11.5-14.5) Platelet Count 95603^3/UL (140-415) Mean Platelet Volume 10.7fl (7.4-10.4) Neutrophils % 68.0% (39.0-77.0) Lymphocytes % 22.1% (15.0-51.0) Monocytes % 8.1% (0.0-11.0) Eosinophils % 1.1% (0.0-7.0) Basophils % 0.4% (0.0-2.0) Nucleated Red Blood Cells % 0.0/100WBC (0.0-0.0) Neutrophils # 7.910^3/ul (1.6-7.5) Lymphocytes # 2.610^3/ul (0.8-2.9) Monocytes # 0.910^3/ul (0.3-0.9) Eosinophils # 0.110^3/ul (0.0-0.5) Basophils # 0.110^3/ul (0.0-0.1) Nucleated Red Blood Cells # 0.010^3/ul (0.0-0.0) Sodium Level 142mmol/L (135-144) Potassium Level 3.4mmol/L (3.5-5.1) Chloride Level 106mmol/L (97-110) Carbon Dioxide Level 27mmol/L (21-31) Anion Gap 12 (8-16) Blood Urea Nitrogen 26mg/dl (7-20) Creatinine 1.33mg/dl (0.61-1.24) Glucose Level 135mg/dl (70-220) Calcium Level 8.3mg/dl (8.4-10.2) Total Bilirubin 0.8mg/dl (0.2-1.3) Direct Bilirubin 0.00mg/dl (0.00-0.20) Indirect Bilirubin 0.8mg/dl (0-1.1) Aspartate Amino Transf (AST/SGOT) 40IU/L (15-46) Alanine Aminotransferase (ALT/SGPT) 27IU/L (13-69) Alkaline Phosphatase 79IU/L (42-121) Total Protein 6.5g/dl (6.1-8.1) Albumin 3.3g/dl (3.3-4.9) Globulin 3.20g/dl (1.3-3.2) Albumin/Globulin Ratio 1.03 HARITHA MCKENNA MD Jul 23, 2017 14:13
[2017-07-23] MEDS ORDERED: LISI20TA11 PO (14:14)
[2017-07-23] MEDS ORDERED: LINA5TAB PO (14:20)
[2017-07-23] MEDS ORDERED: GLUCAGON 1 MG INJ IM PRN (14:30)
[2017-07-23] MEDS ORDERED: DEXTROSE 50% 50 ML SYRINGE IV PRN ×2 (14:30)
[2017-07-23] MEDS ORDERED: GLUCOSE GEL 15 GRAM TUBE PO PRN ×2 (14:30)
[2017-07-23] MEDS ORDERED: GLUCOSE GEL 15 GRAM TUBE BUCCAL PRN (14:30)
--- NOTE | 2017-07-23 14:38 | CONS ---
Date/Time of Note Date/Time of Note DATE: 07/23/17 TIME: 14:38 Assessment/Plan Assessment/Plan Chief Complaint/Hosp Course 1A cute versus acute on chronic kidney disease. Patient does not have any labs in the past, had never been to a doctor. The patient has uncontrolled hypertension for many years, do not know patient's baseline creatinine, assuming possibly patient had chronic kidney disease from underlying uncontrolled hypertension. Plus, on admission, creatinine was 1.67, which could have been worsened likely secondary to cardiorenal( due to [place]) Patient had left and right heart catheterization performed on 07/21/2017. Cr continue to improve inspite of Contrast 2. Hypokalemia. 3. Coronary artery disease, status post percutaneous coronary intervention of mid right coronary artery. 4. Acute STEMI, status post percutaneous coronary intervention of the mid right coronary artery. 5. Hypertension, which has been uncontrolled. 6. Obesity. 7. Kidney cysts. 8. Renal calculus. 9 . DM PLAN: - Agree with Norvasc 10 mg and ok with Linsopril since Cr continue to improve - U/A + 2 protenuria likely secondary to underling dm, will benefit from PURNIMA, will do proteinuria wup as outpatient - Avoid volume depletion and no NSAIDs - Avoid all nephrotoxic agents. - Patient does not have any symptoms from kidney stones that can be worked up as an outpatient. - The patient will eventually require a CT scan of the kidney to evaluate for kidney cyst which can also be done as an outpatient. - Pt can be followed up with me in clinic in 1-2 weeks Problems: Consultation Date/Type/Reason Admit Date/Time Jul 21, 2017 at 21:00 Initial Consult Date 07/21/17 Type of Consultation: Renal Referring Provider: MARISOL SOMMERS MD 24 HR Interval Summary Free Text/Dictation SBP elevated , started on norvasc and PURNIMA Pt is DM with HBA1C 7.9 Exam/Review of Systems Vital Signs Vitals Vital Signs Date Time Temp Pulse Resp B/P Pulse Ox O2 Delivery O2 Flow Rate FiO2 07/23/17 12:02 74 07/23/17 11:47 98.4 16 171/109 97 07/22/17 18:00 Room Air 07/21/17 21:50 21 07/21/17 19:15 4.0 Intake and Output 07/22/17 07/22/17 07/23/17 14:59 22:59 06:59 Intake Total 770 ml 350 ml 200 ml Output Total 400 ml 0 ml 550 ml Balance 370 ml 350 ml -350 ml Exam GENERAL: The patient is awake, alert, oriented, moderate. Does not appear to be in any acute distress. HEENT: Pupils equal, round, reactive to light. NECK: Supple. No JVD. HEART: Regular rate and rhythm. No murmur, rub or gallop. ABDOMEN: Soft, nontender, nondistended, positive bowel sounds. No guarding or rebound tenderness. EXTREMITIES: No clubbing, cyanosis, or edema. NEUROLOGIC: Grossly nonfocal. Results Result Diagram: 07/23/1762107/23/17621 Results 24 hrs Laboratory Tests Test 07/23/17 06:22 White Blood Count 11.7 #H Red Blood Count 4.20 #L Hemoglobin 12.8 #L Hematocrit 37.3 #L Mean Corpuscular Volume 88.8 Mean Corpuscular Hemoglobin 30.5 Mean Corpuscular Hemoglobin Concent 34.3 Red Cell Distribution Width 13.2 Platelet Count 204 # Mean Platelet Volume 10.7 H Neutrophils % 68.0 Lymphocytes % 22.1 Monocytes % 8.1 Eosinophils % 1.1 Basophils % 0.4 Nucleated Red Blood Cells % 0.0 Neutrophils # 7.9 H Lymphocytes # 2.6 Monocytes # 0.9 Eosinophils # 0.1 Basophils # 0.1 Nucleated Red Blood Cells # 0.0 Sodium Level 142 Potassium Level 3.4 L Chloride Level 106 Carbon Dioxide Level 27 Anion Gap 12 Blood Urea Nitrogen 26 H Creatinine 1.33 H Glucose Level 135 Calcium Level 8.3 L Total Bilirubin 0.8 Direct Bilirubin 0.00 Indirect Bilirubin 0.8 Aspartate Amino Transf (AST/SGOT) 40 Alanine Aminotransferase (ALT/SGPT) 27 Alkaline Phosphatase 79 Total Protein 6.5 Albumin 3.3 Globulin 3.20 Albumin/Globulin Ratio 1.03 Medications Medications Current Medications Aspirin (Aspirin) 81 mg DAILY PO Last administered on 07/23/17 09:00; Admin Dose 81 MG; Start 07/22/17 at 09:00 Acetylcysteine (Nac) 1,200 mg BID PO Last administered on 07/23/17 09:00; Admin Dose 1,200 MG; Start 07/22/17 at 10:00; Stop 07/23/17 at 21:01 Atorvastatin Calcium (Lipitor) 40 mg HS PO Last administered on 07/22/17 20: 51; Admin Dose 40 MG; Start 07/22/17 at 21:00 Ticagrelor (Brilinta) 90 mg BID PO Last administered on 07/23/17 09:00; Admin Dose 90 MG; Start 07/22/17 at 14:30 Carvedilol (Coreg) 6.25 mg BID PO Last administered on 07/23/17 09:00; Admin Dose 6.25 MG; Start 07/22/17 at 14:30 Pantoprazole (Protonix Tab) 40 mg DAILY@06 PO Last administered on 07/23/17 05:57; Admin Dose 40 MG; Start 07/23/17 at 06:00 Hydralazine HCl (Apresoline) 10 mg Q4H PRN IV ELEVATED BLOOD PRESSURE Last administered on 07/23/17 12:54; Admin Dose 10 MG; Start 07/23/17 at 12:25 Amlodipine Besylate (Norvasc) 10 mg DAILY PO ; Start 07/24/17 at 09:00 Lisinopril (Zestril) 20 mg DAILY PO ; Start 07/23/17 at 14:30 Linagliptin (Tradjenta) 5 mg DAILY PO ; Start 07/23/17 at 14:30 Miscellaneous Information 1 ea NOTE XX ; Start 07/23/17 at 14:30 Glucose (Glutose) 15 gm Q15M PRN PO DECREASED GLUCOSE; Start 07/23/17 at 14:30 Glucose (Glutose) 22.5 gm Q15M PRN PO DECREASED GLUCOSE; Start 07/23/17 at 14: 30 Dextrose (D50w Syringe) 25 ml Q15M PRN IV DECREASED GLUCOSE; Start 07/23/17 at 14:30 Dextrose (D50w Syringe) 50 ml Q15M PRN IV DECREASED GLUCOSE; Start 07/23/17 at 14:30 Glucagon (Glucagen) 1 mg Q15M PRN IM DECREASED GLUCOSE; Start 07/23/17 at 14: 30 Glucose (Glutose) 15 gm Q15M PRN BUCCAL DECREASED GLUCOSE; Start 07/23/17 at 14:30 MARITZA ARROYO MD Jul 23, 2017 14:38
[2017-07-23] MEDS: LISINOPRIL 20 MG TAB PO SCH (17:44)
[2017-07-23] MEDS: LINAGLIPTIN 5 MG TABLET PO SCH (17:45)
[2017-07-23] MEDS: ATORVASTATIN 40 MG TAB PO SCH (20:52)
[2017-07-24] VITALS (9 sets, daily range): BP systolic 128–151; BP diastolic 72–93; PULSE 39–82; RESP 19–23
[2017-07-24] MEDS: PANTOPRAZOLE (EC) 40 MG TAB PO SCH (05:31)
[2017-07-24 06:55] LABS: CALCIUM 9.1 mg/dl (8.4-10.2); CREATININE 1.13 mg/dl (0.61-1.24); POTASSIUM 3.8 mmol/L (3.5-5.1)
[2017-07-24] MEDS: ASPIRIN 81 MG TAB PO SCH (08:25)
[2017-07-24] MEDS: LINAGLIPTIN 5 MG TABLET PO SCH (08:26)
[2017-07-24] MEDS: TICAGRELOR 90 MG TABLET PO SCH (08:28)
[2017-07-24] MEDS: LISINOPRIL 20 MG TAB PO SCH (08:30)
[2017-07-24] MEDS ORDERED: AMLODIPINE 5 MG TAB PO SCH (09:00)
[2017-07-24] MEDS ORDERED: AMLODIPINE 10 MG TAB PO SCH (09:00)
--- NOTE | 2017-07-24 12:27 | CONS ---
Date/Time of Note Date/Time of Note DATE: 07/24/17 TIME: 12:25 Assessment/Plan Assessment/Plan Chief Complaint/Hosp Course Inferior STEMI s/p PCI of mid RCA. EF preserved CAD: PCI as above. 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 Up to 3 seconds.Coreg given late in evening. Likely has sleep apnea. HTN: better controlled DANNY: Cr almost normalized -ASA 81mg lifelong -ticagrelor 90mg BID -coreg 6.25mg BID (ok to keep dose as is as no pauses while awake. Pt advised to take evening dose earlier ~6pm) -lipitor -continue lisinopril and amlodipine -ok for d/c -should have outpt sleep study for OUMAR eval Problems: Consultation Date/Type/Reason Admit Date/Time Jul 21, 2017 at 21:00 Initial Consult Date 07/21/17 Type of Consultation: Cardiology Referring Provider: MARISOL SOMMERS MD 24 HR Interval Summary Free Text/Dictation Still with sinus pauses up to 3 secs while asleep. No episodes while awake. BP better controlled. Wants to go home. Exam/Review of Systems Vital Signs Vitals Vital Signs Date Time Temp Pulse Resp B/P Pulse Ox O2 Delivery O2 Flow Rate FiO2 07/24/17 12:01 75 07/24/17 11:26 98.0 21 151/93 99 07/22/17 18:00 Room Air 07/21/17 21:50 21 07/21/17 19:15 4.0 Intake and Output 07/23/17 07/23/17 07/24/17 15:00 23:00 07:00 Intake Total 1400 ml 400 ml Output Total 650 ml Balance 1400 ml -250 ml Exam Constitutional: alert, oriented Psych: nl mood/affect, no complaints Head: atraumatic, normocephalic Neck: supple, No jvd Respiratory: clear to auscultation, No crackles/rales Cardiovascular: regular rate and rhythm, No edema, No systolic murmur Gastrointestinal: non-tender, soft Neurological: nl mental status, nl speech Results Result Diagram: 07/23/17 0622 07/24/17 0553 Results 24 hrs Laboratory Tests Test 07/24/17 05:53 Sodium Level 143 Potassium Level 3.8 Chloride Level 109 Carbon Dioxide Level 26 Anion Gap 12 Blood Urea Nitrogen 23 H Creatinine 1.13 Glucose Level 124 Calcium Level 9.1 Medications Medications Current Medications Aspirin (Aspirin) 81 mg DAILY PO Last administered on 07/24/17 08:25; Admin Dose 81 MG; Start 07/22/17 at 09:00 Atorvastatin Calcium (Lipitor) 40 mg HS PO Last administered on 07/23/17 20: 52; Admin Dose 40 MG; Start 07/22/17 at 21:00 Ticagrelor (Brilinta) 90 mg BID PO Last administered on 07/24/17 08:28; Admin Dose 90 MG; Start 07/22/17 at 14:30 Carvedilol (Coreg) 6.25 mg BID PO Last administered on 07/24/17 08:30; Admin Dose 6.25 MG; Start 07/22/17 at 14:30 Pantoprazole (Protonix Tab) 40 mg DAILY@06 PO Last administered on 07/24/17 05:31; Admin Dose 40 MG; Start 07/23/17 at 06:00 Hydralazine HCl (Apresoline) 10 mg Q4H PRN IV ELEVATED BLOOD PRESSURE Last administered on 07/23/17 17:51; Admin Dose 10 MG; Start 07/23/17 at 12:25 Amlodipine Besylate (Norvasc) 10 mg DAILY PO Last administered on 07/24/17 08 :29; Admin Dose 10 MG; Start 07/24/17 at 09:00 Lisinopril (Zestril) 20 mg DAILY PO Last administered on 07/24/17 08:30; Admin Dose 20 MG; Start 07/23/17 at 14:30 Linagliptin (Tradjenta) 5 mg DAILY PO Last administered on 07/24/17 08:26; Admin Dose 5 MG; Start 07/23/17 at 14:30 Miscellaneous Information 1 ea NOTE XX ; Start 07/23/17 at 14:30 Glucose (Glutose) 15 gm Q15M PRN PO DECREASED GLUCOSE; Start 07/23/17 at 14:30 Glucose (Glutose) 22.5 gm Q15M PRN PO DECREASED GLUCOSE; Start 07/23/17 at 14: 30 Dextrose (D50w Syringe) 25 ml Q15M PRN IV DECREASED GLUCOSE; Start 07/23/17 at 14:30 Dextrose (D50w Syringe) 50 ml Q15M PRN IV DECREASED GLUCOSE; Start 07/23/17 at 14:30 Glucagon (Glucagen) 1 mg Q15M PRN IM DECREASED GLUCOSE; Start 07/23/17 at 14: 30 Glucose (Glutose) 15 gm Q15M PRN BUCCAL DECREASED GLUCOSE; Start 07/23/17 at 14:30 DION LOMAS Jul 24, 2017 12:27
[2017-07-24] MEDS ORDERED: LISI40TA9 PO (13:38)
--- NOTE | 2017-07-24 13:42 | DS ---
Date/Time of Note Date/Time of Note DATE: 07/24/17 TIME: 13:41 Discharge Summary Admission/Discharge Info Admit Date/Time Jul 21, 2017 at 21:00 Discharge Date/Time Discharge Diagnosis 1. CAD with Acute STEMI, s/p mid RCA stent 07/21/2017, stable, on aspirin/ brilinta, lipitor, coreg 2. Acute on chronic renal failure, resolved 3. HTN, controlled 4. Obesity 5. DM, newly diagnosed, start tradjenta, follow up with PCP Patient Condition: Stable Hospital Course This is a 52-year-old male who presented to the ED today complaining of chest pain. Patient states that the pain started approximately 4 days ago and has been on and off since. The pain is sharp and it was 10 out of 10 and centrally located. He states that today the pain got worse and it radiated down his left arm which prompted him to come to the ED. Patient also reports that he noticed swelling of his bilateral lower feet as well. Denies any diaphoresis or shortness of breath. He reports he has not taken his blood pressure medications in approximately 1 year. Patient was found to have an inferior STEMI on the EKG. Stat code STEMI was called and patient was taken to the [facility] where he received PCI of mid RCA. Patient has no chest pain or shortness of breath after the procedure. He will follow up with cardiology outpatient. For hypertension, he is on coreg, norvasc and lisinopril. Follow up with PCP for antihypertensives adjustment.. Cr was 1.67 on 07/21/2017, it improves to 1.13 on 07/24/2017. Home Meds Active Scripts Lisinopril* (Lisinopril*) 40 Mg Tablet, 40 MG PO DAILY, #30 TAB Prov:HARITHA MCKENNA MD 07/24/17 Linagliptin (TRADJENTA) 5 Mg Tablet, 5 MG PO DAILY for 30 Days, TAB Prov:HARITHA MCKENNA MD 07/23/17 Aspirin (Aspirin) 81 Mg Chew, 81 MG PO DAILY for 30 Days, TAB Prov:HARITHA MCKENNA MD 07/23/17 Carvedilol* (Carvedilol*) 6.25 Mg Tablet, 6.25 MG PO BID for 30 Days, TAB Prov:HARITHA MCKENNA MD 07/23/17 Atorvastatin* (Atorvastatin*) 40 Mg Tablet, 40 MG PO HS for 30 Days, TAB Prov:HARITHA MCKENNA MD 07/23/17 Amlodipine Besylate* (Amlodipine Besylate*) 10 Mg Tablet, 10 MG PO DAILY for 30 Days, TAB Prov:HARITHA MCKENNA MD 07/23/17 Ticagrelor* (Brilinta*) 90 Mg Tablet, 90 MG PO BID for 30 Days, TAB Prov:HARITHA MCKENNA MD 07/23/17 Follow-up Plan PCP in one week cardiology in one week nephrology in one week Primary Care Provider Rajeev Chawla Pending Labs Laboratory Tests Test 07/24/17 05:53 Sodium Level 143mmol/L (135-144) Potassium Level 3.8mmol/L (3.5-5.1) Chloride Level 109mmol/L (97-110) Carbon Dioxide Level 26mmol/L (21-31) Anion Gap 12 (8-16) Blood Urea Nitrogen 23mg/dl (7-20) Creatinine 1.13mg/dl (0.61-1.24) Glucose Level 124mg/dl (70-220) Calcium Level 9.1mg/dl (8.4-10.2) HARITHA MCKENNA MD Jul 24, 2017 13:42
[2017-07-25] MEDS ORDERED: LISINOPRIL 20 MG TAB PO SCH (09:00)
== END 2017-07-24 14:16 | disposition home or self-care (01) | DRG 247 ==
LOC: E/R 19:06 → ICU 19:40 → E/R 21:24 → ICU 21:40 → E/R 21:40 → TEL 07-22 20:02
PROVIDERS: ADMIT Family Medicine; ATTEND Family Medicine
PROC: B211YZZ Fluoroscopy of Multiple Coronary Arteries using Other Contrast (ICD-10-PCS; 2017-07-21)
PROC: 027034Z Dilation of Coronary Artery, One Artery with Drug-eluting Intraluminal Device, Percutaneous Approach (ICD-10-PCS; principal; 2017-07-21 19:30)
PROC: 4A023N7 Measurement of Cardiac Sampling and Pressure, Left Heart, Percutaneous Approach (ICD-10-PCS; 2017-07-21 19:30)
DX: I21.19 ST elevation (STEMI) myocardial infarction involving other coronary artery of inferior wall (principal); N17.9 Acute kidney failure, unspecified; E11.22 Type 2 diabetes mellitus with diabetic chronic kidney disease; I25.82 Chronic total occlusion of coronary artery; I16.1 Hypertensive emergency; N28.1 Cyst of kidney, acquired; I25.10 Atherosclerotic heart disease of native coronary artery without angina pectoris; I12.9 Hypertensive chronic kidney disease with stage 1 through stage 4 chronic kidney disease, or unspecified chronic kidney disease; N18.9 Chronic kidney disease, unspecified; N20.0 Calculus of kidney; E87.6 Hypokalemia; E66.9 Obesity, unspecified; Z68.34 Body mass index [BMI] 34.0-34.9, adult; Z91.14 Patient's other noncompliance with medication regimen; Z87.442 Personal history of urinary calculi
CPT/HCPCS: 36415; 71010; 76775; 80048; 80053; 80061; 81001; 82550; 82553; 83036; 84484; 85025; 85610; 85730; 87081; 93005; 93306; 93458; 96374; C1725; C1876; C1887; C9113; C9606; J0360; J0583; J1644; J2250; J3010; J7030